=== PATIENT | male | born 1960 | race Two or more races ===

== ENCOUNTER 2017-07-24 23:51 | Emergency (ER) | payer MEDICAID ==
[~2017-07-24] VITALS: Ht 190.5 cm; Wt 108.0 kg
[2017-07-25 00:08] VITALS: BP 147/100
[2017-07-25] MEDS ORDERED: TETANUS-DIPTH-ACEL PERTUSSIS 0.5ML SYRG IM ONE (01:15)
== END 2017-07-25 02:08 | disposition home or self-care (01) ==
LOC: ER 07-25
DX: S91.332A Puncture wound without foreign body, left foot, initial encounter (principal); Z23 Encounter for immunization; W45.0XXA Nail entering through skin, initial encounter; Y93.89 Activity, other specified; Y99.8 Other external cause status; Y92.098 Other place in other non-institutional residence as the place of occurrence of the external cause
CPT/HCPCS: 90471; 90715